=== PATIENT | female | born 2005 | race Caucasian/White ===

== ENCOUNTER 2024-02-19 00:30 | Emergency (ER) | payer OTHER, SELFPAY ==
[2024-02-19 00:36] VITALS: BP 157/96
[2024-02-19 03:06] VITALS: BP 138/82
== END 2024-02-19 03:18 ==
LOC: EMR 00:30
PROVIDERS: EMERGENCY PHYSICIAN Student in an Organized Health Care Education/Training Program
DX: R00.8 Other abnormalities of heart beat (principal); Z53.21 Procedure and treatment not carried out due to patient leaving prior to being seen by health care provider
CPT/HCPCS: 93005